=== PATIENT | female | born 1960 | race Caucasian/White ===

== ENCOUNTER 2017-07-23 08:00 | Day surgery (SDC) | payer OTHER ==
[~2017-07-23] VITALS: Ht 162.6 cm; Wt 71.7 kg
[~2017-07-23 08:00] MED LIST: AMLODIPINE BESY10 MG PO; CYCLOBENZAPRINE10 MG PO; FOLIC ACID1 MG PO; GABAPENTIN600 MG PO; LIPITOR20 MG PO; OXYCODONE HCL5 MG PO; WARFARIN SODIUM10 MG PO
--- NOTE | 2017-07-23 09:18 | NUR ---
CALL TAKEN FROM [employer] CONCERNED WITH PT RIDE POSSIBLY HAVING ETOH SMELL. SPOKE WITH PT REGARDING THIS. PATIENT STATES HE WAS POSSIBLY GOING TO THE BAR TO HAVE BREAKFAST AND PLAY THE GAMBLING MACHINES. SHE IS NOT WORRIED ABOUT HIM DRINKING AND IS OKAY GOING HOME WITH HIM.
--- NOTE | 2017-07-24 06:26 | OR ---
[facility] [address], [place] [address] Signed DATE OF OPERATION: 07/23/2017 SURGEON: Benito Umana MD PREOPERATIVE DIAGNOSIS: Screening. POSTOPERATIVE DIAGNOSIS: Internal anal skin tags. PROCEDURE: Colonoscopy without biopsy. ESTIMATED BLOOD LOSS: None. INDICATIONS: Lindsey is a 56-year-old female who was asked to see me for her initial screening colonoscopy. She has no lower GI complaints. There is no family history of colon cancer or polyps. 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 Consequently, we left her on the Coumadin for the procedure. Also, she has significant issues with her neck as well as the need for daily oxycodone and cyclobenzaprine. As a result, we asked an anesthesia provider to help us with increased monitoring sedation. In the office, I gave Lindsey booklet on colonoscopy. We looked at that together in detail. We also reviewed the written instructions for her bowel prep. She had expressed understanding and wished to proceed. PROCEDURE NOTE: Lindsey was taken into our endoscopy suite and placed in the left lateral decubitus position. She was given IV sedation with propofol per nurse belly roller. A digital rectal exam was performed and I could feel some small internal anal skin tags. After this, the adult colonoscope was introduced and advanced under direct visualization of camera into the cecum without difficulty. Her prep was good. The scope was then slowly withdrawn. We saw no pathology throughout her entire colon or rectum. Upon retroflexion of scope, she has several small internal anal skin tags. After this, the gas was suctioned out. The colonoscope removed. Lindsey tolerated the procedure quite well. RECOMMENDATIONS: Lindsey can follow up in 10 years for a repeat colonoscopy. Electronically Signed By: BENITO UMANA MD 07/24/17 0626 PATIENT NAME: LINDSEY GAUTHIER OPERATIVE REPORT DATE OF : 64 PHYSICIAN: BENITO UMANA MD REPORT #: [id number] REPORT IS CONFIDENTIAL AND NOT TO BE RELEASED WITHOUT AUTHORIZATION [address] [address] Signed MD ISATU Patel/MARGARITA /[id number] cc: MD Gentry Patel MD Electronically Signed By: BENITO UMANA MD 07/24/17 0626 PATIENT NAME: LINDSEY GAUTHIER OPERATIVE REPORT DATE OF : 64 PHYSICIAN: BENITO UMANA MD REPORT #: [id number] REPORT IS CONFIDENTIAL AND NOT TO BE RELEASED WITHOUT AUTHORIZATION
== END 2017-07-23 11:00 | disposition home or self-care (01) ==
LOC: DS 08:00 → OPS 08:00 → DS 09:00 → OPS 11:00
PROVIDERS: Colon & Rectal Surgery
PROC: 0DJD8ZZ Inspection of Lower Intestinal Tract, Via Natural or Artificial Opening Endoscopic (ICD-10-PCS; principal; 2017-07-23 09:00)
DX: Z12.11 Encounter for screening for malignant neoplasm of colon (principal); K64.8 Other hemorrhoids; I10 Essential (primary) hypertension; F17.210 Nicotine dependence, cigarettes, uncomplicated; J45.909 Unspecified asthma, uncomplicated; Z86.19 Personal history of other infectious and parasitic diseases; Z86.711 Personal history of pulmonary embolism; Z86.718 Personal history of other venous thrombosis and embolism; D68.59 Other primary thrombophilia; Z98.51 Tubal ligation status; Z98.890 Other specified postprocedural states; Z79.899 Other long term (current) drug therapy
CPT/HCPCS: 00810; J2250; J2704; J7120